=== PATIENT | male | born 1940 | race Caucasian/White ===

== ENCOUNTER → 2017-03-29 | Outpatient (CLI) | payer MEDICARE, OTHER ==
[~2017-03-29] MED LIST: Aspir-Trin325 MG PO; LISI5 PO
== END | disposition home or self-care (01) ==
LOC: LAB SHORT 11:12 → PLD 11:12
DX: D48.5 Neoplasm of uncertain behavior of skin (principal)
CPT/HCPCS: 88305

== ENCOUNTER → 2018-04-16 | Outpatient (CLI) | payer MEDICARE, OTHER | END | disposition home or self-care (01) | LOC: LAB SHORT 11:26 → PLD 11:26 | DX: L57.0 Actinic keratosis (principal) | CPT/HCPCS: 88305 ==

== ENCOUNTER → 2018-09-14 | Outpatient (CLI) | payer MEDICARE, OTHER ==
[2018-09-14 19:08] LABS: Campylobacter Sp Not Detected (NOT DETECT); Giardia Lamblia Detected (NOT DETECT)
[2018-09-14 19:09] LABS: Adenovirus F 40/41 Not Detected (NOT DETECT); Astrovirus Not Detected (NOT DETECT); Cryptosporidium Not Detected (NOT DETECT); Cyclospora Cayetanensis Not Detected (NOT DETECT); E. Coli O157 Not Detected (NOT DETECT); Entamoeba Histolytica Not Detected (NOT DETECT); Enteroaggregative E. coli-EAEC Not Detected (NOT DETECT); Enteropathogenic E. coli-EPEC Not Detected (NOT DETECT); Enterotoxigenic E. coli-ETEC Not Detected (NOT DETECT); Norovirus GI/GII Not Detected (NOT DETECT); Plesiomonas Shigelloides Not Detected (NOT DETECT); Rotavirus A Not Detected (NOT DETECT); Salmonella Sp Not Detected (NOT DETECT); Sapovirus Not Detected (NOT DETECT); Shiga Toxin-prod E. coli-STEC Not Detected (NOT DETECT); Shigella/Enteroin E. coli-EIEC Not Detected (NOT DETECT); Vibrio Cholerae Not Detected (NOT DETECT); Vibrio Sp Not Detected (NOT DETECT); Yersinia Enterocolitica Not Detected (NOT DETECT)
== END ==
LOC: LAB 15:30 → LAB SHORT 15:30
PROVIDERS: Nurse Practitioner
DX: R19.7 Diarrhea, unspecified (principal)
CPT/HCPCS: 0097U

== ENCOUNTER → 2021-11-10 | Outpatient (CLI) | payer MEDICARE, OTHER | END | disposition home or self-care (01) | LOC: LAB SHORT 15:27 → PLD 15:27 | DX: D48.5 Neoplasm of uncertain behavior of skin (principal) | CPT/HCPCS: 88305 ==

== ENCOUNTER 2022-09-22 06:31 | Day surgery (SDC) | payer MEDICARE, OTHER ==
[2022-09-22] VITALS (8 sets, daily range): BP systolic 100–150; BP diastolic 60–89
[~2022-09-22] VITALS: Ht 177.8 cm; Wt 87.1 kg
[~2022-09-22 06:31] MED LIST changes: +ASCORBIC ACID500 MG PO; +Aspir 8181 MG PO; +Vitamin D1000 UNI1 PO
--- NOTE | 2022-09-22 09:36 | NUR ---
PT REPORT FROM ESTELA GARCIA. PT A&Ox4. PT SITTING UP IN RECLINER EATING BREAKFAST. REPEAT V/S. PACEMAKER REP AT BEDSIDE DISCUSSING D/C INSTRUCTIONS W/ PT AND .
--- NOTE | 2022-09-22 09:44 | NUR ---
PT AMBULATED TO RESTROOM W/O ANY ASSISTANCE.
--- NOTE | 2022-09-22 10:52 | NUR ---
PT GIVEN DC INSTRUCTIONS AND VERBALIZED UNDERSTANDING. IV OUT. PT CHNAGED INTO CLOTHES AND TAKEN TO LBY VIA WC. CHANGE OUT SITE SOFT AND NON-TENDER. DRESSING CLEAN. TO DRIVE PT HOME.
== END 2022-09-22 11:37 | disposition home or self-care (01) ==
LOC: MHTC 06:31
DX: Z45.010 Encounter for checking and testing of cardiac pacemaker pulse generator [battery] (principal); I13.0 Hypertensive heart and chronic kidney disease with heart failure and stage 1 through stage 4 chronic kidney disease, or unspecified chronic kidney disease; I50.30 Unspecified diastolic (congestive) heart failure; N18.9 Chronic kidney disease, unspecified; E78.5 Hyperlipidemia, unspecified; G47.33 Obstructive sleep apnea (adult) (pediatric); Z87.891 Personal history of nicotine dependence; Z88.1 Allergy status to other antibiotic agents
CPT/HCPCS: 33228; 99152; 99153; C1785; J0690; J1644; J2250; J3010; J7040

== ENCOUNTER 2023-07-02 10:54 | Day surgery (SDC) | payer MEDICARE, OTHER ==
[~2023-07-02] VITALS: Ht 177.8 cm; Wt 82.4 kg
[~2023-07-02 10:54] MED LIST changes: +Acerola C500 MG PO; +Lactated Ringer's 1,000 ML IV ONE; +Lactated Ringer's 1,000 ML ONE; +propofoL 50 ML IV ONE
[2023-07-02] MEDS ORDERED: Lactated Ringer's 1,000 ML IV ONE (12:04)
[2023-07-02 13:00] VITALS: BP 132/86
== END 2023-07-02 13:08 | disposition home or self-care (01) ==
LOC: ORSCSDS 10:54
PROVIDERS: Internal Medicine Gastroenterology
PROC: 0DJD8ZZ Inspection of Lower Intestinal Tract, Via Natural or Artificial Opening Endoscopic (ICD-10-PCS; principal; 2023-07-02 12:45)
DX: Z12.11 Encounter for screening for malignant neoplasm of colon (principal); Z86.010 Personal history of colon polyps; Z80.0 Family history of malignant neoplasm of digestive organs; K57.30 Diverticulosis of large intestine without perforation or abscess without bleeding; I48.91 Unspecified atrial fibrillation; N18.9 Chronic kidney disease, unspecified; Z86.73 Personal history of transient ischemic attack (TIA), and cerebral infarction without residual deficits; G47.33 Obstructive sleep apnea (adult) (pediatric); Z79.82 Long term (current) use of aspirin; Z87.891 Personal history of nicotine dependence; Z79.899 Other long term (current) drug therapy
CPT/HCPCS: J2704; J7120